=== PATIENT | female | born 1955 | race Caucasian/White ===

== ENCOUNTER → 2016-08-04 | Outpatient (CLI) | payer BC ==
[~2016-08-04] MED LIST: BACL10TA PO; KETO-22 PO
--- NOTE | 2016-08-04 16:25 | Diagnostic Imaging Report ---
INDICATION: Nephrolithiasis. KUB at 4:30 PM FINDINGS: There is a 12 mm calcification projecting over the lower pole of the right kidney and a 10 mm calcification projecting over the left renal pelvis. There is scoliosis of the lumbar spine convex to right. There are calcified phleboliths in the pelvis. IMPRESSION: Oval calcifications projecting over both kidneys consistent with nephrolithiasis. Dictated by: Dictated on workstation # [id number]
== END ==
LOC: RAD 16:04
PROVIDERS: ATTEND Urology
DX: N20.0 Calculus of kidney (principal)
CPT/HCPCS: 74000

== ENCOUNTER 2016-08-13 05:39 | Outpatient (CLI) | payer BC ==
[~2016-08-13] VITALS: Ht 165.1 cm; Wt 95.3 kg
[2016-08-13] MEDS ORDERED: HYDR-3820 PO (11:06)
[2016-08-13] MEDS ORDERED: LEVO125T6 PO (11:06)
[2016-08-13] MEDS ORDERED: ASPI-586 PO (11:06)
[2016-08-13] MEDS ORDERED: MELO15TA39 PO (11:06)
[2016-08-13] MEDS ORDERED: FESO8TAB PO (11:06)
== END 2016-08-13 11:16 ==
LOC: PREOP 05:39
PROVIDERS: ATTEND Urology
DX: Z01.818 Encounter for other preprocedural examination (principal); N20.0 Calculus of kidney

== ENCOUNTER 2016-08-17 06:54 | Day surgery (SDC) | payer BC ==
[~2016-08-17] VITALS: Ht 165.1 cm; Wt 95.3 kg
[~2016-08-17 06:54] MED LIST changes: +ASPI-586 PO; +FESO8TAB PO; +HYDR-3820 PO; +LEVO125T6 PO; +MELO15TA39 PO
--- NOTE | 2016-08-17 07:05 | Progress Note-Pre Operative ---
Pre-Operative Progress Note H&P Reviewed The H&P was reviewed, patient examined and no changes noted. Date H&P Reviewed: August 17, 2016 Time H&P Reviewed: 07:04 Pre-Operative Diagnosis: BILATERAL RENAL STONES HARIS RADFORD MD August 17, 2016 7:05 am
[2016-08-17] MEDS ORDERED: NS (IVPB) 50 ML ONE (07:06)
[2016-08-17] MEDS ORDERED: cefTRIAXone 1 GM (ROCEPHIN) VIAL ONE (07:06)
--- NOTE | 2016-08-17 07:11 | Progress Note-Post Operative ---
Post-Operative Progess Note Surgeon (s)/Management Specialist (s) Surgeon HARIS RADFORD MD Management Specialist: N/A Pre-Operative Diagnosis BILATERAL RENAL STONES Post-Operative Diagnosis SAME Procedure & Operative Findings Date of Procedure 08/17/16 Procedure Performed/Findings RT ESWL Anesthesia Type GENERAL Estimated Blood Loss Estimated blood loss (mL): N/A Specimens/Packing Specimens Removed N/A HARIS RADFORD MD August 17, 2016 7:11 am
--- NOTE | 2016-08-17 07:13 | Discharge Inst-Urology ---
Discharge Inst-Urology Discharge Medications New, Converted, or Re-newed RX: RX on Chart Patient Instructions/Follow Up Plan Please make appointment to been seen in office Wednesday 08/30, KUB prior to it Stay off ASA KUB on way home Post ESWL instructions Increase oral fluids for 48 hours and then as needed. Diet and Activity as tolerated. If questions or concerns contact your physician Or seek help at emergency department. HARIS RADFORD MD August 17, 2016 7:13 am
[2016-08-17] MEDS ORDERED: cefTRIAXone 1 GM/NS 50 ML IVPB IV ONE ×2 (07:15)
[2016-08-17] MEDS: LACTATED RINGERS 1,000 ML IV PRN ×2 (07:20→09:40)
[2016-08-17 08:02] VITALS: BP 189/90
[2016-08-17] MEDS ORDERED: LACTATED RINGERS 1,000 ML IV ONE ×2 (08:07→09:42)
[2016-08-17] MEDS ORDERED: fentaNYL INJECTION 100 MCG/2 ML AMP ONE (08:08)
[2016-08-17] MEDS ORDERED: MIDAZOLAM 2 MG/2 ML (VERSED) VIAL ONE (08:08)
[2016-08-17] MEDS ORDERED: ONDANSETRON 4 MG/2 ML (SDV) Z0FRAN ONE (08:11)
[2016-08-17] MEDS ORDERED: proPOfol 200 MG/20 ML (DIPRIVAN) VIAL IV ONE (08:11)
[2016-08-17] MEDS ORDERED: KETOROLAC 30 MG/ML VIAL ONE (08:11)
[2016-08-17] MEDS ORDERED: FUROSEMIDE 40 MG/4 ML INJ (LASIX) ONE (08:11)
[2016-08-17] MEDS ORDERED: SEVOFLURANE (ULTANE) 15 ML INHAL SOLN ONE ×2 (08:11→09:44)
[2016-08-17] MEDS ORDERED: LIDOCAINE PF 2% 10 ML (XYLOCAINE) AMP ONE (08:11)
--- NOTE | 2016-08-17 08:23 | Diagnostic Imaging Report ---
KUB. INDICATION: Lithotripsy for kidney stones. FINDINGS: There are oval calcifications seen, one projecting over the lower pole of the left kidney measuring 1.2 cm and one projecting over the right renal pelvis area measuring 1.3 cm. Multiple pelvic calcifications are likely phleboliths. There is scoliosis of the lumbar spine convex to the right with prominent degenerative changes. IMPRESSION: Suggestion of lower pole left kidney and right renal pelvis stones. Dictated by: Dictated on workstation # [id number]
[2016-08-17] MEDS ORDERED: DEXAMETHASONE PF 10 MG/ML (DECADRON) VIAL ONE (09:20)
[2016-08-17] MEDS ORDERED: morphine INJ 10 MG/ML 1ML (SYR OR VIAL) IVP PRN (10:15)
[2016-08-17] MEDS ORDERED: ONDANSETRON 4 MG/2 ML (SDV) Z0FRAN IVP PRN (10:15)
[2016-08-17] MEDS ORDERED: MEPERIDINE (DEMEROL) INJ 50 MG/ML IVP PRN (10:15)
[2016-08-17 10:50] VITALS: BP 182/86
[2016-08-17] MEDS ORDERED: NITR-68 PO (11:19)
[2016-08-17] MEDS ORDERED: HYDR-3876 PO (11:19)
[2016-08-17] MEDS ORDERED: TAMS0.4C98 PO (11:19)
[2016-08-17 11:20] VITALS: BP 182/86
--- NOTE | 2016-08-17 11:44 | Diagnostic Imaging Report ---
KUB. INDICATION: Renal stones post lithotripsy. FINDINGS: Stone fragments collectively measuring 1.6 cm projecting over the right renal pelvis area and fragmented stone measuring 1.1 cm in the lower pole of the left kidney are seen. Multiple calcifications in the pelvis are likely phleboliths. Right convexed scoliosis of the lumbar spine with degenerative changes noted. IMPRESSION: Bilateral kidney stones with post fragmentation changes. No definite ureteric stone. Dictated by: Dictated on workstation # [id number]
[2016-08-17 11:50] VITALS: BP 148/81
[2016-08-17 12:00] VITALS: BP 148/81
--- NOTE | 2016-08-17 14:03 | OPERATIVE REPORT ---
DATE OF SERVICE: 08/17/2016 PREOPERATIVE DIAGNOSIS: Bilateral renal stones. POSTOPERATIVE DIAGNOSIS: Bilateral renal stones. OPERATION PERFORMED: Right SURGEON: Alex Radford MD COMPLICATIONS: None. PROCEDURE IN DETAIL: Under satisfactory general anesthesia, the patient was placed in the supine position on the ESWL table. The right renal pelvic stones were localized. Shocks were delivered at kV of 5. A total of 3000 shocks were completely fragmented the stone. It was hardly seen. The patient received 40 mg of Lasix and 30 mg of Toradol IV at the end of the procedure. He tolerated the procedure and anesthesia well and was sent to the recovery room in stable condition. Job ID: [id number] DocumentID: [id number] Dictated Date: 08/17/2016 09:39:05 [place] Date: 08/17/2016 14:02:48 Dictated By: ALEX RADFORD MD
== END 2016-08-17 12:00 | disposition home or self-care (01) ==
LOC: SDC 06:54
PROVIDERS: ATTEND Urology
DX: N20.0 Calculus of kidney (principal); E03.9 Hypothyroidism, unspecified; Z79.899 Other long term (current) drug therapy
CPT/HCPCS: 74000; 87081

== ENCOUNTER 2016-08-30 16:00 | Outpatient (CLI) | payer BC ==
[~2016-08-30] VITALS: Ht 165.1 cm; Wt 95.3 kg
[2016-08-31] MEDS ORDERED: TAMS0.4C98 PO (11:40)
[2016-08-31] MEDS ORDERED: NITR-68 PO (11:40)
[2016-08-31] MEDS ORDERED: HYDR-3876 PO (11:40)
== END 2016-08-30 16:16 ==
LOC: PREOP 16:00
PROVIDERS: ATTEND Urology
DX: Z01.818 Encounter for other preprocedural examination (principal); N20.0 Calculus of kidney

== ENCOUNTER → 2016-08-30 | Outpatient (CLI) | payer BC ==
[~2016-08-30] MED LIST changes: +HYDR-3876 PO; +NITR-68 PO; +TAMS0.4C98 PO
--- NOTE | 2016-08-30 14:18 | Diagnostic Imaging Report ---
INDICATION: Nephrolithiasis. EXAMINATION: KUB at 1:54 PM. FINDINGS: There is an 8 mm calculus projecting over the inferior pole of the left kidney. There are no obvious calculi in the right kidney. There is some fecal material obscuring details of the lower portion of the right kidney. There is scoliosis of the lumbar spine with degenerative change. There are multiple calcified phleboliths in the pelvis. IMPRESSION: Left nephrolithiasis. No appreciable calculi are seen in the right kidney. Dictated by: Dictated on workstation # [id number]
== END ==
LOC: RAD 13:28
PROVIDERS: ATTEND Urology
DX: N20.0 Calculus of kidney (principal)
CPT/HCPCS: 74000

== ENCOUNTER 2016-08-31 08:48 | Day surgery (SDC) | payer BC ==
[~2016-08-31] VITALS: Ht 165.1 cm; Wt 95.3 kg
[2016-08-31] MEDS ORDERED: cefTRIAXone 1 GM (ROCEPHIN) VIAL ONE (08:55)
[2016-08-31] MEDS ORDERED: NS (IVPB) 50 ML ONE (08:55)
[2016-08-31 09:12] VITALS: BP 170/90
[2016-08-31] MEDS ORDERED: LACTATED RINGERS 1,000 ML IV PRN (09:12)
[2016-08-31] MEDS ORDERED: FAMOTIDINE 20MG/2ML IV (PEPCID) IV ONE (09:15)
[2016-08-31] MEDS ORDERED: cefTRIAXone 1 GM/NS 50 ML IVPB IV ONE ×2 (09:30)
--- NOTE | 2016-08-31 09:41 | Diagnostic Imaging Report ---
INDICATION: Nephrolithiasis. EXAMINATION: KUB at 9:30 AM. FINDINGS: There is an 8 mm stone in the inferior pole of the left kidney. There are degenerative changes of the lumbar spine. There are several calcified phleboliths in the pelvis. IMPRESSION: Left nephrolithiasis. Dictated by: Dictated on workstation # [id number]
--- NOTE | 2016-08-31 09:47 | Progress Note-Pre Operative ---
Pre-Operative Progress Note H&P Reviewed The H&P was reviewed, patient examined and no changes noted. Date Seen by Provider: Aug 31, 2016 Time Seen by Provider: 09:47 Date H&P Reviewed: Aug 31, 2016 Time H&P Reviewed: 09:47 Pre-Operative Diagnosis: RT RENAL STONE HARIS RADFORD MD Aug 31, 2016 9:47 am
[2016-08-31] MEDS ORDERED: fentaNYL INJECTION 100 MCG/2 ML AMP ONE (10:13)
[2016-08-31] MEDS ORDERED: proPOfol 200 MG/20 ML (DIPRIVAN) VIAL IV ONE (10:13)
[2016-08-31] MEDS ORDERED: LIDOCAINE PF 2% 5 ML (XYLOCAINE) VIAL ONE (10:13)
[2016-08-31] MEDS ORDERED: MIDAZOLAM 2 MG/2 ML (VERSED) VIAL ONE (10:13)
[2016-08-31] MEDS ORDERED: LACTATED RINGERS 1,000 ML IV ONE (10:25)
[2016-08-31] MEDS ORDERED: SEVOFLURANE (ULTANE) 15 ML INHAL SOLN ONE (10:25)
[2016-08-31] MEDS ORDERED: ONDANSETRON 4 MG/2 ML (SDV) Z0FRAN ONE (10:26)
[2016-08-31] MEDS ORDERED: FUROSEMIDE 40 MG/4 ML INJ (LASIX) ONE (10:26)
[2016-08-31] MEDS ORDERED: DEXAMETHASONE PF 10 MG/ML (DECADRON) VIAL ONE (10:26)
--- NOTE | 2016-08-31 10:36 | Progress Note-Post Operative ---
Post-Operative Progess Note Surgeon (s)/Retort Setter (s) Surgeon HARIS RADFORD MD Retort Setter: N/A Pre-Operative Diagnosis LT RENAL STONE Post-Operative Diagnosis SAME Procedure & Operative Findings Date of Procedure 08/31/16 Procedure Performed/Findings LT ESWL, SAME ABOVE Anesthesia Type GENERAL Estimated Blood Loss Estimated blood loss (mL): N/A Specimens/Packing Specimens Removed N/A HARIS RADFORD MD Aug 31, 2016 10:36 am
--- NOTE | 2016-08-31 10:38 | Discharge Inst-Urology ---
Discharge Inst-Urology Discharge Medications New, Converted, or Re-newed RX: RX on Chart Patient Instructions/Follow Up Plan Please make appointment to been seen in office in 2 weeks. KUB prior to it KUB on way home Post ESWL instructions Increase oral fluids for 48 hours and then as needed. Diet and Activity as tolerated. If questions or concerns contact your physician Or seek help at emergency department. HARIS RADFORD MD Aug 31, 2016 10:38 am
[2016-08-31] MEDS ORDERED: KETOROLAC 30 MG/ML VIAL IVP ONE (11:15)
[2016-08-31] MEDS ORDERED: fentaNYL INJECTION 100 MCG/2 ML AMP IVP PRN (11:15)
[2016-08-31] MEDS ORDERED: morphine INJ 10 MG/ML 1ML (SYR OR VIAL) IVP PRN (11:15)
[2016-08-31] MEDS ORDERED: ONDANSETRON 4 MG/2 ML (SDV) Z0FRAN IVP PRN (11:15)
[2016-08-31] MEDS ORDERED: TAMS0.4C98 PO (11:40)
[2016-08-31] MEDS ORDERED: HYDR-3876 PO (11:40)
[2016-08-31] MEDS ORDERED: NITR-68 PO (11:40)
[2016-08-31 11:55] VITALS: BP 180/96
[2016-08-31 12:25] VITALS: BP 183/83
[2016-08-31 13:00] VITALS: BP 179/90
--- NOTE | 2016-08-31 13:09 | Diagnostic Imaging Report ---
EXAMINATION: KUB. INDICATION: Lithotripsy. FINDINGS: The previously seen stone in the lower pole of the left kidney is poorly visualized at this time with a tiny fragment suggested in the lower pole of the left kidney and possibly in the left renal pelvis. There are tiny right flank calcifications which may relate to stones. No definite ureteric stone. Pelvic calcifications are likely phleboliths. IMPRESSION: Suggestion of interval fragmentation of the lower pole left kidney stone with faint tiny stone fragments suggested remaining in the lower pole of the left kidney and possibly in the left renal pelvis. Dictated by: Dictated on workstation # [id number]
[2016-08-31 13:10] VITALS: BP 179/90
--- NOTE | 2016-08-31 13:16 | OPERATIVE REPORT ---
DATE OF SERVICE: 08/31/2016 [employer] PREOPERATIVE DIAGNOSIS: Left renal stone. POSTOPERATIVE DIAGNOSIS: Left renal stone. OPERATION PERFORMED: Left ESWL SURGEON: Alex Radford MD ANESTHESIA: General. COMPLICATIONS: None. PROCEDURE IN DETAIL: Under satisfactory general anesthesia, the patient was placed in the supine position on the ESWL table. The left renal stone was localized. Shocks were delivered at kV of 5. A total of 2500 shocks completely fragmented the stone that was not visualized. The patient received 40 mg of Lasix and 30 mg of Toradol IV. He tolerated the procedure and anesthesia well and was sent to the recovery room in stable condition after receiving 40 mg of Lasix and 30 mg of Toradol IV.[employer] Job ID: [id number] DocumentID: [id number] Dictated Date: 08/31/2016 10:55:51 Trial Consultant Date: 08/31/2016 11:36:04 Dictated By: ALEX RADFORD MD
--- NOTE | 2016-08-31 14:34 | Anesthesia-General Post-Op ---
General Patient Condition Mental Status/LOC: Same as Preop Cardiovascular: Satisfactory Nausea/Vomiting: Absent Respiratory: Satisfactory Pain: Controlled Complications: Absent Post Op Complications Complications None Follow Up Care/Instructions Patient Instructions None needed. Anesthesia/Patient Condition Patient Condition Patient is doing well, no complaints, stable vital signs, no apparent adverse anesthesia problems. No complications reported per nursing. [place] [facility] [place] Yes SKYE RODGERS DO Aug 31, 2016 14:34
== END 2016-08-31 13:10 | disposition home or self-care (01) ==
LOC: SDC 08:48
PROVIDERS: ATTEND Urology
DX: N20.0 Calculus of kidney (principal)
CPT/HCPCS: 74000; 87081

== ENCOUNTER → 2016-09-16 | Outpatient (CLI) | payer BC | DX: N20.0 Calculus of kidney (principal) ==

== ENCOUNTER → 2017-01-04 | Outpatient (CLI) | payer BC ==
[~2017-01-04] VITALS: Ht 165.1 cm; Wt 95.3 kg
[~2017-01-04] MED LIST changes: +LIDOCAINE 1% INJ 20 ML (XYLOCAINE) VIAL INJ ONE; +LIDOCAINE 1% INJ 20 ML (XYLOCAINE) VIAL ONE; +NS (IVPB) 100 ML ONE
[2017-01-04 12:48] VITALS: BP 129/75
[2017-01-04 13:35] VITALS: BP 124/78
--- NOTE | 2017-01-04 15:40 | Diagnostic Imaging Report ---
EXAMINATION: Vacuum-assisted stereotactic breast biopsy , with clip placement, and specimen radiographs. INDICATION: Left breast calcifications . CONSENT: Informed consent was obtained from the patient. The risks, benefits, potential complications and alternatives were reviewed and all questions answered to the patient's satisfaction. PROCEDURE: The patient is positioned on the stereotactic mammography machine in sitting position. Prior mammograms were reviewed and based on the position of the calcifications, the appropriate the approach is selected. Initial stereotactic mammographic views at -15 and +15 degrees where performed and confirmation of localization of the lesion is performed. The localization is performed with the stereotactic software assistance and confirmed visually to match the area of interest. After satisfactory localization with initial stereotactic mammographic images, the biopsy tract approach is selected from superior to inferior with the skin site determined. After sterile preparation and draping, 1% lidocaine was utilized for local anesthesia. After confirming the targeted calcifications along the central slightly superior and lateral aspect of the left breast, multiple vacuum-assisted stereotactic biopsies, with 8-gauge core needles, were performed. The specimen radiograph demonstrates calcifications. Subsequently, a marking clip was placed at the site of the biopsy. Subsequently CC and lateral views mammogram is performed and confirms positioning of the clip slightly inferior to the location of the calcifications in the central slightly superior and the lateral aspect of the left breast. The patient tolerated the procedure well with no immediate complications. IMPRESSION: Successful stereotactic vacuum-assisted left breast biopsy for calcifications along the central slightly superior and lateral left breast calcifications. A marking clip was left in place. The specimen radiograph demonstrates the calcifications, with the position of the clip slightly inferior to the location of the calcifications. The calcifications are not seen on the postbiopsy mammogram. Pathology results are pending. Dictated by: Dictated on workstation # [id number]
--- NOTE | 2017-01-04 20:34 | Diagnostic Imaging Report ---
EXAM: Left breast ultrasound. INDICATION: Cluster of calcifications seen on mammography in the left breast. FINDINGS: The four-quadrant central retroareolar regions of the left breast were scanned with no underlying abnormality seen. IMPRESSION: Negative study. The calcifications with low suspicion for malignancy do not have a corresponding ultrasound abnormality. A stereotactic biopsy to follow. BI-RADS 4A. ACR BI-RADS Category 4A: Low suspicion of malignancy. Result letter will be mailed to the patient. Note: At least 10% of breast cancer is not imaged by mammography. Dictated by: Dictated on workstation # [id number]
== END ==
LOC: RAD 12:02
PROVIDERS: ATTEND Family Medicine
DX: R92.1 Mammographic calcification found on diagnostic imaging of breast (principal)
CPT/HCPCS: 19081; 76641

== ENCOUNTER → 2017-08-10 | Outpatient (CLI) | payer BC ==
[~2017-08-10] MED LIST changes: -LIDOCAINE 1% INJ 20 ML (XYLOCAINE) VIAL INJ ONE; -LIDOCAINE 1% INJ 20 ML (XYLOCAINE) VIAL ONE; -NS (IVPB) 100 ML ONE
--- NOTE | 2017-08-10 17:01 | Diagnostic Imaging Report ---
INDICATION: History of kidney stones. COMPARISON: 09/16/2016. FINDINGS: Single supine radiographic view of the abdomen was obtained and demonstrates a calculus measuring approximately 5 mm within the inferior pole of the left kidney. This is new or increased when compared to 2 mm calculus in the same area on prior study. Multiple pelvic phleboliths are also noted. No unexpected radiopaque foreign bodies are identified. Small bowel loops are nondistended. There is no large collection of free intraperitoneal air. IMPRESSION: 1. New or increasing in size left renal calculus. Dictated by: Dictated on workstation # [id number]
== END ==
LOC: RAD 16:09
PROVIDERS: ATTEND Urology
DX: N20.0 Calculus of kidney (principal)
CPT/HCPCS: 74018